=== PATIENT | female | born 1980 | race Caucasian/White ===

== ENCOUNTER 2018-01-17 05:59 | Day surgery (SDC) | payer BC ==
[2018-01-17] MEDS ORDERED: MIDAZOLAM 1 MG/ML 2 ML INJ ×2 (08:05)
[2018-01-17] MEDS ORDERED: FENTAnyl 50 MCG/ML VIAL (08:05)
== END 2018-01-17 14:59 | disposition home or self-care (01) ==
LOC: GIL 05:59
DX: K21.9 Gastro-esophageal reflux disease without esophagitis (principal); K29.70 Gastritis, unspecified, without bleeding; E03.9 Hypothyroidism, unspecified
CPT/HCPCS: 43239; 84703; 88305